=== PATIENT | female | born 2000 | race Caucasian/White ===

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

== ENCOUNTER 2021-04-07 10:55 | Emergency (ER) | payer SELFPAY ==
[2021-04-07 10:58] VITALS: BP 134/90; PULSE 80; TEMP 36.5; O2SAT 98
--- NOTE | 2021-04-07 10:59 | ED.GENADUL_ITS ---
Discharge Plan Disposition Patient Disposition: HOME Condition: Stable Discharge Details Clinical Impression: Laceration of thumb Primary Care Provider: Aurelia,Local ED Provider: Tonie Sanchez Home Meds and New Rx's Prescriptions: New cephalexin 500 mg capsule 500 mg PO BID 5 Days Qty: 10 RF: 0 Discharge Instructions Instructions: Laceration (ED) Additional Instructions: Keep wound clean and dry. Cover wound with bandage if risk of contamination. Otherwise you can keep the wound open to air if resting at home to allow edges to dry and heal. You are being given a prescription for antibiotics to prevent wound infection. Your prescription has been sent electronically to your pharmacy. Call the pharmacy to make sure your prescription is ready before pickup. Take the p rescription as directed. Return to the emergency department in 7 days for suture removal. Follow-up with your primary care doctor or return to the emergency department anytime if you develop any fever, redness, swelling or pain. 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 She thinks her tetanus is up-to-date. She has a 1 cm slightly C-shaped laceration to the medial aspect of her distal left thumb. Bleeding controlled. No bony deformity or foreign body. Neurovascular intact. Finger soaked in chlorhexidine scrub. Digital block performed. 2 sutures placed. Wound dressed. Will cover with prophylactic antibiotics considering lo cation of wound. Advised to return to the ED in 7 days for suture removal. Medical Records Medical records reviewed: Yes I reviewed the patient's medical records. HPI General Mode of arrival: ambulatory . Date/Time Provider Initiated Documentation: 04/07/21 10:56 . Limitations to Documentation: no limitations . Information obtained by: patient . HPI Narrative: Patient is a 20-year-old female presents with laceration to her left thumb sustained at work while she was cutting potatoes prior to arrival. Patient states she was using a clean sharp knife when she accidentally cut the medial side of her distal left thumb. She denies any other injuries. She states she thinks her tetanus is up-to-date. Related Data Home Medications Medication Instructions Recorded Confirmed cephalexin 500 mg PO BID 5 Days #10 cap 04/07/21 Previous Rx's Medication Instructions Recorded cephalexin 500 mg PO BID 5 Days #10 cap 04/07/21 Allergies Allergy/AdvReac Type Severity Reaction Status Date / Time No Known Allergies Allergy Unverified 04/07/21 11:01 General ARY: 3 Review of Systems All systems reviewed & are unremarkable except as noted in HPI and below PFSH Surgical History (Updated 09/20/19 @ 09:50 by Audrey Martin RN) S/P laparoscopic appendectomy (~08/2019) Social History Smoking/Tobacco Use Status: Current every day Tobacco Type: cigarettes Smoking risk assessment performed?: Yes Alcohol Intake: current Alcohol Intake frequency: a few times a month Drug use: Daily Substance use type: marijuana Do you feel safe at home: Yes Do you feel safe in your relationship?: Yes Exam Const General: cooperative, healthy appearing and no acute distress HENMT Head: normal to inspection Mouth: oral mucosae normal Eyes General: appearance normal, both eyes and all related structures Neck Neck: normal visual inspection Resp Effort & Inspection: normal respiratory effort and able to speak in complete sentences Cardio Rate: regular rate Skin General skin exam: no rashes or lesions noted Neuro General: patient alert, patient awake and patient oriented x3 Motor: muscle tone normal throughout Other: Motor/sensory grossly intact to left thumb Extrem Hand/finger images: 1. 1 cm slightly C-shaped laceration on the medial aspect of distal left thumb just lateral to the nail. No extension of the laceration into the nail. Bleeding controlled. No obvious bony deformity or foreign body. Psych Appearance: grossly normal Affect: normal affect
== END 2021-04-07 12:22 | disposition home or self-care (01) ==
PROVIDERS: Emergency Provider Physician Assistant
DX: S61.012A Laceration without foreign body of left thumb without damage to nail, initial encounter (principal); W26.0XXA Contact with knife, initial encounter; Y93.G1 Activity, food preparation and clean up; Y99.0 Civilian activity done for income or pay
CPT/HCPCS: 12001

== ENCOUNTER 2021-04-14 12:15 | Emergency (ER) | payer SELFPAY ==
[2021-04-14 12:22] VITALS: BP 129/80; PULSE 93; RESP 14; TEMP 36.8; O2SAT 98
--- OUTSIDE RECORDS SUMMARY | 2021-04-14 12:35 | XMS_ITS ---
:2000 Author Organization [facility] Address [address] [place] [address] Care Team Providers Name Role Phone Kait Unavailable Unavailable PROBLEMS Type Condition ICD9-CM Code AUV09-HM Code Onset Condition SNO MED Code Dates Status Problem Vaginal spotting N92.0 Active 266 295385 Problem MDD (major F33.1 Active 36537222 depressive disorder), recurrent episode, moderate Problem Dysthymia F34.1 Active 68808418 Problem Rapid cycling F31.9 Active 965836 04 bipolar disorder Problem Severe episode F33.2 Active 90852 008 of recurrent major depressive disorder, without psychotic features Problem Friable cervix N88.8 Active Problem Primary insomnia F51.01 Active 397 2004 Problem Exercise-induced J45.990 Active 313 57421 asthma Problem Unspecified mood F39 Active 441 632765 [affective] disorder Problem Anxiety F41.9 Active 14553109 Problem Insomnia, G47.00 Active 701562685 unspecified type Problem Depression, F32.9 Active 03848923 unspecified depression type ALLERGIES No Known Allergies ENCOUNTERS Encounter Location Date Diagnosis CASE MANAGEMENT [address] [facility] Aug, [place] [address] [facility] Jun, Need for m [place]ing[place] [address] vaccination Z23 ; Encounter for immunization Z23 ; Need for HPV vaccine Z23 ; Need for hepatitis A immunization Z23 ; Anxiety F4 1.9 ; Severe episode of recur rent major depressive disor yoshi, without psychotic featur es F33.2 and Primary insomnia F51.01 [facility] [address] [facility] 16 May, 2019 [place] [address] [facility] [address] Apr, [place] [address] [facility] [address] Apr, [place] [address] [facility] [address] [facility] Mar, [place] [address] [facility] [address] Mar, Well adult health check OFFICE [facility] Z00.00 ; E ncounter for drug screening Z02.83 ; Alcohol screening Z13.89 ; Depression, unsp ecified depression type F32.9 ; Insomnia, unspec ified type G47.00 ; Anxiety F41.9 ; Screening choles terol level Z13.220 ; Immuni zation due Z23 and Immuniza tion deficiency Z28.3 [facility] [address] January, [place] [facility] [address] [facility] Sep, [place] [address] vomiting R11 .10 LPO-SPECIALTY TEAM [facility] Sep, Rapid cycl[place] [address] disorder F31 .9 [facility] Sep, [place] [address] disorder F31 .9 [facility] [address] Sep, MDD (major [place] [address] disorder), recurrent episode, moderat e F33.1 ; Dysthymia F34.1 and Unspecified mood [affective] disorder F39 [facility] [address] Sep, [place] [address] [facility] [address] Aug, [place] [address] LPO-SPECIALTY TEAM [facility] Jul, Unspecified mood [affective] [place] [address] disorder F39 [facility] [address] [facility] Jul, [place] [address] [facility] [address] Jul, [place] [address] [facility] [address] Jul, Rapi d cycling [place] [address] disorder F 31.9 and MDD (major depressiv e disorder), recurrent episod e, moderate F33.1 [facility] 14 Jul, 2017 [place] [address] [facility] [address] Jun, [place] [address] zzLPO-PRIM and PSYCH [address] 10 Jun, 2017 MDD ([place] [address] disorder), r ecurrent episode, moderat e F33.1 and Dysthymia F34.1 [facility] [address] May, Depr essive disorder F32.9 [place] [address] LPO-SPECIALTY TEAM [address] 22 May, 2017 [place] [address] zzLPO-PRIM and PSYCH [address] May, [place] [address] [facility] [address] 15 May, 2017 OFFICE [place] [address] [place] [address] [facility] [address] May, OFFICE [place] [address] [place] [address] [facility] [address] Mar, Esha re episode [place] [address] major depr essive disorder, without psychoti c features F33.2 ; Dysthymi a F34.1 ; Friable cervix N 88.8 and Vaginal spotting N92.0 zzLPO-PRIM and PSYCH [address] [facility] [address] Mar, [place] [address] major depres sive disorder, without psychoti c features F33.2 [facility] [address] 17 Mar, 2017 [place] [address] [facility] OFF[facility] [address] [facility] [address] Mar, [place] [id number] [place] [address] [facility] [address] Feb, [place] [address] zzLPO-PRIM and PSYCH [address] Feb, [place] [address] zzLPO-PRIM and PSYCH [address] Feb, [place] [address] major depres sive disorder, without psychoti c features F33.2 xxOFFICE NON CLINICAL [address] Feb, [place] [address] zzLPO-PRIM and PSYCH [address] January, [place] [address] major depres sive disorder, without psychoti c features F33.2 zzLPO-PRIM and PSYCH [address] January, [place] [address] major depres sive disorder, without psychoti c features F33.2 zzLPO-PRIM and PSYCH [address] January, [place] [address] with single episode, remission status unspecified F32.9 zzLPO-PRIM and PSYCH [facility] January, [place] [address] major depres sive disorder, without psychoti c features F33.2 and Dysthy king F34.1 [facility] [address] [facility] January, Major [place] [address] with single episode, remission status unspecified F32.9 zzLPO-PRIM and PSYCH [facility] January, Severe [place] [address] major depres sive disorder, without psychoti c features F33.2 [facility] [address] January, OFFICE [address] [facility] 8 [facility] 1 Dec, Enco miner [place] [address] Z02.83 ; R outine or child health nasir ck Z00.129 ; Major depressive disorder with single epis ode, remission status unspecified F32.9 ; Hyperhid rosis L74.519 ; Exerci se-induced asthma J45.990 a nd Alcohol screening Z13.89 [facility] Apr, Hyperhidro sis L74.519 [place] [address] zzLPO-PRIM and PSYCH [address] [facility] Mar, [place] [address] zzLPO-PRIM and PSYCH [facility] Mar, [address] [facility] 8 [facility] 1 Mar, Whee zing R06.2 [place] [address] Hyperhidro sis L74.519 [facility] [address] Mar, OFF[address] [facility] [address] Nov, [place] [address] health nasir ck Z00.129 [facility] 1 Oct, Inju [place] [address] S69.92XA LPO-SPECIALTY TEAM [address] [facility] Jul, [address] [facility] [address] Jul, Sore throat J02.9 [place] [address] pharyngiti s J02.0 [facility] [address] 14 Apr, 2013 Well baby/ child exam V20.[address] PHYSIC[facility]ANS 8 [facility] 1 Dec, Sophia l gastroenteritis 008.[address] PHYSICIANS 8 [facility] 1 15 Feb, 2011 PHYS ICAL-CHILD V20.2 ; [place] [address] VACCINATIO N V06.1 and ADMINISTRTVE ENC OUNT NOS V68.9 [facility] 1 Jun, OFFICE [address] PHYSICIAN [address] May, OFFICE [address] [facility]ANS 8 [facility] 1 17 Mar, 2009 Well baby/ child exam V20.2 [place] [address] ; HEPATITI S VACCINE V05.3 ; VACCIN FOR POLIO MYELITIS V04.0 and MMR VA CCINATION V06.4 [facility] [address] 18 Feb, [address] [facility]ANS 8 [facility] 1 Aug, Virgil rgic asthma NOS [place] [address] mention of status asthmaticus or a cute exacerbation 493 .90 [facility] 1 Jun, OFFICE [address] [facility]ANS 8 [facility] [address] Jun, [address] PHYSICIANS 8 [facility] 1 Jun, STRE P SORE THROAT 034.[address] [facility]ANS 8 [facility] 1 Feb, Well baby/ child exam V20.2 [place] [address] IMMUNIZATIONS Vaccine Route Administration Date Status HPV STATE Gardasil-9 IM Intramuscular Jul 14, 2019 Administer ed Meningococcal STATE (MenB or IM Intramuscular April 15, 2019 Ad ministered Bexsero) Meningococcal STATE (MenB or IM Intramuscular Jul 14, 2019 Ad ministered Bexsero) Hep A STATE PEDI Havrix 28926 IM Intramuscular Jul 14, 2019 A dministered Tdap STATE Adacel 7yrs or older of IM Intramuscular March 06 1 Administered age [address] Bicillin [place] penicillin G benzathine IM Intramuscular Aug 18 5 Administered 2667005 units Meningococcal STATE(Menactra) 09734 IM Intramuscular April 15 19 Administered Hep B >18yrs NONSTATE 95565 Unknown April 07, 2009 Admi nistered Varicella HISTORY Unknown December 03, 2007 Administered Tdap STATE Boostrix 7yrs or older Unknown February 05, 2007 Administered of age [address] Varicella STATE SC Subcutaneous April 15, 2019 Administered IPV STATE 38256 Unknown April 07, 2009 Administered Hep B STATE Not for high risk IM Intramuscular April 15, 2019 A dministered indication 98353 MMR STATE 30447 SC Subcutaneous April 15, 2019 Administered MMR STATE 14671 Unknown April 07, 2009 Administered SOCIAL HISTORY Qualifiers Date Current Smoker REASON FOR REFERRAL FUNCTIONAL STATUS PLAN OF CARE Activity Details Follow Up FU with psych BERNABE, FU with me in clinic in 3 months Reason: Future Test COMPMET 20170110 Future Test CBC WITH AUTO DIFF 20170110 Future Test TSH 20160415 Future Test X Wrist L 3V 20151120 VITAL SIGNS Height 69.5 in 2019-07-14 Weight 143 lbs 2019-07-14 BMI 20.81 kg/m2 2019-07-14 Temperature 98.7 degrees Fahrenheit 2019-07-14 Heart Rate 78 /min 2019-07-14 Respiratory Rate 18 /min 2019-07-14 Oximetry 98 % 2019-07-14 Blood pressure systolic 128 mm Hg 2019-07-14 Blood pressure diastolic 86 mm Hg 2019-07-14 MEDICATIONS Medication Instructions Dosage Frequency Start End Duration Statu s Date Date busPIRone HCl Orally Twice a 1 tablet 12h 23 Jun, days Ac tive 10 MG day 2018 Ortho Active Tri-Cyclen (28) Mirtazapine 15 Orally Once a 1 tablet at 24h Jun, day( s) Active MG day bedtime 2018 PROCEDURES Procedure Date Ordered Result Body Site HPV VIRUS VACCINE 9 PAIGE IM Jul 14, 2019 Dep screen neg (73167) Jul 14, 2019 Hep A STATE PEDI Havrix 04226 Jul 14, 2019 Flu vaccine received during flu season (71681) Jul 14, 2019 Med Rec done (18706) Jul 14, 2019 N.CL,STATE inj.fee,(Single or Combination)(45799) Jul 14, 2019 BMI normal (96573) Jul 14, 2019 Tob user, counseled (31567) Jul 14, 2019 FLU VAC NO PRSV 4 PAIGE 3 YRS+ Jul 14, 2019 MENB RP W/OMV VACCINE IM Jul 14, 2019 SBIRT screening 2017-01-10 neg SBIRT screening 2019-04-15 Negative RESULTS Name Result Date Reference Range LIPID W/ CALCULATED LDL 2019-04-15 CHOL 213 0-200 TRIG 93 0-200 HDL 80 23-92 LDL CALC 114 5-99 CHOL/HDL 2.7 0.0-4.5 CYTO: PAP SMEAR-Screening 2017-04-18 RESULT unsatisfactory TSH 2016-04-18 THYROID STIMULATING HORMONE 1.950 X Wrist L 3V 2015-11-20 Image Accessible RAPID STREP SCREEN,IN OFFICE (2 Swab 2015-08-18 System) Result positive REASON FOR VISIT 3 month f/u, referred to 07/14, missed 2 appts in Aug, please discuss, still needed?, no apptsmade, consult, PDMP: ACETAMINOPHEN-COD #3 TABLET QTY 20 Days 3 F/W 01/07/17 by [facility], new pcp former [facility], due for Men B #2, HPV #1 and Hep A #1-ac, pt complains of anxiety and depression, HepB #3 and HPV #2, vaccines-no response, Men B #2, Hep A #1, HPV #1, IMMUNIZATION #2, r/s nurse visit , forms for college, College physical form - AV 04/21/19, CPE/IMMUNIZATIONS, MMR, Varicella, Hep B, Menigococcal,... Hep A if want to start , Pt states no concerns today, No medication refills needed at this time., CPE/immunizations, MMR, Varicella, Hep B, Menigococcal,... 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 list is correct-JS, The pt states the citalopram is not working and the higher dose of abilify made her drousy., The pt has had stomach problems dry heaves and nausea wandering if one of medicatoins negative test., Discuss medications, Questions about Medication , refill- abilify, citalopram, Med FU--mother cancelled did not want to r/s 08/25, questioning bipolar dx, Medications reviewed w/patient's parent, med. list is correct-JS, The pt started started the abilify yesterday and it made her so she could not sleep and nauseated in the morning., She wants to continue the abilify though., speak with nursing staff, cassandra PA, med f/u, med f/u--mother r/s 08/05, med f/u ok AC - mom called to xcl, appt with REENA, App[facility] with Dr[facility] Duval[facility], Medications reviewed w/pt,med. list is correct-JS, [facility] diversion program [facility], f/u from [facility] see te-JS, TCM documentation, need records, diversion hos pital , Pt scheduled , change medications, citalopram not working, med f/u , depression/anxiety, Medications listed below as unknown were not reviewed with patient. Medications managed by prescribing provider, med f/u-- mother called r/s 04/09, appt, make an apt for richard, Rickit, ? med refill , f/u-- mother called canceled 03/03, medication f/ u from -- mother called canceled 03/03, f/u if needed not needed, No effect from medication, depression, Medications listed below as unknown were not reviewed with patient. Medications managed by prescribing provider, Med FU, appointment with REENA ghosh 03/04, medication f/u from Dr. Duval-- mother called r/s 02/19, anxiety, Medications listed below as unknown were not reviewed with patient. Medications managed by prescribing provider, depression, Medications listed below as unknown were not reviewed with patient. Medications managed by prescribing provider, medication change for psych , severe episode of recurrant major depression, Medicationsreviewed w/pt,med. list is correct-JS, citalopram refill, suicidal ideation, Medications listed below as unknown were not reviewed with patient. Medications managed by prescribing provider, check on pt, WCC- discuss control, pt due for meningococcal and start hpv series- pt mother declined shots, ankle pain when running, Drysol not covered, referral, proair script, discuss going on asthma meds,Pt states she has some hyperhidrosis, Pt has a bruise on the back of her left leg, states it is hardand it has been two months and it has not gone away. , asthma, Sweating excessive, [facility] sports phys, no concerns, "DISCLAIMER: THIS NOTE WAS CREATED USING [employer] VOICE RECOGNITION SOFTWARE. IT WAS REVIEWED FOR MAJOR CONTENT. HOWEVER, THERE MAY BE MULTIPLE SMALL DISCREPANCIES AND ERRORS DUE TO THE VOICE RECOGNITION ASPECTS OF THE SOFTWARE., fell on wrist, pt stated she fell on her LT wrist on Friday, pt is in pain, sore throat., sore throat, strep?, "DISCLAIMER: THIS NOTE WAS CREATED USING [employer] VOICE RECOGNITION SOFTWARE. IT WAS REVIEWED FOR MAJOR CONTENT. HOWEVER, THERE MAY BE MULTIPLE SMALL DISCREPANCIES AND ERRORS DUE TO THE VOICE RECOGNITION ASPECTS OF THE SOFTWARE., ? strep, Pt states since Friday she has had a bad sore throat, stayed home from school on Friday. Needs a school note., Pt has non productive cough, sounds like she has stuff in her throat that wants to come up. JL, Pt sings and is in a group, what can she take that will help with the pain., hives on face-day requrested by pt's mom, head cold-per parents request, 12 yr [facility], Medications reviewed w/pt,med. list is correct CARINE, fever/?flu, mom states she has diarrhea with bile it this morning, vomitting and body aches, Medications reviewed w/pt,med. list is correct , [facility], camp paperwork, no immun per parent, Requesting call, got sick after shots , [facility]--ok per PW, 8 yr [facility]--mother cancelled 03/09, [facility] appt, cold, Mom states that her main concern for Richard is that she has had a dry cough for about a month now., Pt vomited last nigt 4 or 5 times -not due to cough-up set stomach (per mom), Momwould like to talk to you about sleep apnea, Mom is concerned about possible allergies., ? chickenpox - mother cancelled, "Red itchy rash", red/sore throat, red/sore throat, [place] [employer] student ,Mother has always refused Immunizations on child Insurance Providers Health Health Health Health Health Member Patient Patient Patient Patient Patient Subscriber Subscriber Subscriber Group Insurance Plan Plan Plan Plan ID Relationship Address Phone Name Date of ID Name Date of No Type Insurance Insurance Insurance Coverage to Subscriber Address Phone Name Dates SELF PAY ANY STREET SELF PAY self RICHARD 2000 [place] [address] INSURANCE MEDICAID E[place] MEDICAID self R[place] 2000 [id number] [place] [facility] [id number] MEDICAID EDS MEDICAID self RICHARD 2000 [id number] [place] [facility] [facility] [id number] MEDICAL (GENERAL) HISTORY Type Description Date Medical History Seasonal allergies Surgical History wisdom teeth x's 2016
--- NOTE | 2021-04-14 12:37 | ED.GENADUL_ITS ---
Discharge Plan Disposition Patient Disposition: HOME Condition: Stable Discharge Details Clinical Impression: Encounter for removal of sutures Primary Care Provider: Aurelia,Local ED Provider: Jude Del Real Home Meds and New Rx's Prescriptions: No Action No Known Home Meds RF: 0 Discharge Instructions Additional Instructions: Stitches removed without difficulty. Continue to be gentle with your thumb to avoid tearing open the wound. Keep it clean and dry, you may change antibiotic dressing daily. Watch for new or worsening symptoms and return to the ER for any concerns Medical Decision Making 20-year-old presents for suture removal. Sutures removed without difficulty. Dry sterile dressing applied. Patient has no additional questions or concerns. Medical Records Medical records reviewed: Yes I reviewed the patient's medical records. HPI General Mode of arrival: ambulatory . Date/Time Provider Initiated Documentation: 04/14/21 12:37 . Limitations to Documentation: no limitations . Information obtained by: patient . HPI Narrative: 20-year-old female presents for suture removal from her left thumb. Reports sutures were placed 7 days ago. Reports that there is a small amount of altered sensation locally but denies true numbness or weakness. Denies fever or drainage. Denies any discomfort. Patient has no additional questions or concerns Related Data Home Medications Medication Instructions Recorded Confirmed Unknown [No Known Home Meds] 04/14/21 04/14/21 Allergies Allergy/AdvReac Type Severity Reaction Status Date / Time No Known Allergies Allergy Unverified 04/14/21 12:25 General Stated Complaint: SutureRem ARY: 5 Review of Systems Constitutional Constitutional: Denies fever(s) Musculoskeletal Musculoskeletal: Denies arthralgias, Denies numbness, Reports stiffness and Reports tingling Integumentary/Breasts Skin/Breast: Denies erythema Neurologic Neurologic: Denies numbness and Reports tingling [facility] Surgical History S/P laparoscopic appendectomy (~08/2019) Social History Smoking/Tobacco Use Status: Current every day Tobacco Type: cigarettes Smoking risk assessment performed?: Yes Alcohol Intake: current Alcohol Intake frequency: a few times a month Drug use: Occasionally Substance use type: marijuana Do you feel safe at home: Yes Do you feel safe in your relationship?: Yes Exam Const General: cooperative, healthy appearing, comfortable and no acute distress Orientation: alert and awake [facility] Head: normal to inspection, normocephalic and atraumatic Mouth: moist mucous membranes Eyes Conjunctivae: conjunctivae normal Neck Neck: normal visual inspection, trachea midline and supple Resp Effort & Inspection: normal respiratory effort and able to speak in complete sentences Cardio Rate: regular rate Rhythm: regular rhythm Skin General skin exam: no rashes or lesions noted Neuro General: patient alert, patient awake, moves all extremities and no focal motor deficits Sensory Exam: no sensory deficits noted Extrem General: full ROM and capillary refill normal Other: Left thumb distal aspect with a well-healing laceration, [address] Neuro, vascular, tendon intact. No discomfort or erythema. No drainage. Psych Appearance: grossly normal Mental Status: mental status grossly normal Course Vital Signs Vital signs: Vital Signs Temperature 36.8 C 04/14/21 12:22 Pulse 93 H 04/14/21 12:22 Respiratory Rate 14 04/14/21 12:22 Blood Pressure 129/80 04/14/21 12:22 Pulse Oximetry 98 04/14/21 12:22 Temperature 36.8 C 04/14/21 12:22 Temperature Source Oral 04/14/21 12:22 Pulse 93 H 04/14/21 12:22 Respiratory Rate 14 04/14/21 12:22 Respiratory Effort Non-Labored 04/14/21 12:25 Blood Pressure 129/80 04/14/21 12:22 Blood Pressure Position Supine 04/14/21 12:22 Pulse Oximetry 98 04/14/21 12:22 Oxygen Delivery Method Room Air 04/14/21 12:22 Oxygen Flow Rate 0 04/14/21 12:22 Pain Level 2 04/14/21 12:22
== END 2021-04-14 12:46 | disposition home or self-care (01) ==
PROVIDERS: Emergency Provider Physician Assistant
DX: S61.012D Laceration without foreign body of left thumb without damage to nail, subsequent encounter (principal); W26.0XXD Contact with knife, subsequent encounter; Z48.02 Encounter for removal of sutures